=== PATIENT | female | born 1970 | race Caucasian/White ===

== ENCOUNTER 2017-08-29 11:01 | Emergency (ER) | payer BC ==
[~2017-08-29] VITALS: Ht 165.1 cm; Wt 108.9 kg
[2017-08-29] MEDS ORDERED: XANAX 0.5 MG0.5 MG PO (11:22)
[2017-08-29] MEDS ORDERED: PROZAC10 M1 PO (11:22)
[2017-08-29] MEDS ORDERED: REXULTI0.25 MG PO (11:22)
[2017-08-29 11:32] LABS: ABSOLUTE EOSINOPHILS 0.1 thou/uL (0.0-0.7); ABSOLUTE LYMPHOCYTES 1.9 thou/uL (0.8-5.3); ABSOLUTE MONOCYTES 0.6 thou/uL (0.0-1.2); ABSOLUTE NEUTROPHILS 4.6 thou/uL (1.6-8.1); BASOPHILS 0.5 %; EOSINOPHILS 1.6 %; HEMATOCRIT 44.7 % (37.0-47.0); HEMOGLOBIN 15.1 gm/dL (12.0-15.0); LYMPHOCYTES 26.4 %; MCH 30.3 pg (26.0-34.0); MCHC 33.7 g/dL (28.0-37.0); MCV 89.7 fL (80.0-100.0); MONOCYTES 8.7 %; NUCLEATED RBCS 0 /100WBC; PLATELET COUNT* 265 thou/uL (150-400); POLYS 62.8 %; RBC 4.98 mil/uL (4.20-5.00); RDW-CV 12.9 % (10.5-14.5); WBC 7.3 thou/uL (4.0-11.0)
[2017-08-29 11:57] LABS: ANION GAP 9 mmol/L (7-16); BUN 15 mg/dL (7-18); CALCIUM 9.2 mg/dL (8.5-10.1); CHLORIDE 104 mmol/L (98-107); CO2 27 mmol/L (21-32); CREATININE 0.8 mg/dL (0.6-1.3); GLUCOSE 92 mg/dL (70-99); SODIUM 140 mmol/L (136-145)
[2017-08-29 12:05] LABS: ALBUMIN 3.7 g/dL (3.4-5.0); ALKALINE PHOSPHATASE 72 U/L (46-116); SGOT 13 U/L (15-37); SGPT 20 U/L (30-65); TOTAL BILIRUBIN 0.7 mg/dL (<0.1-1.0); TOTAL PROTEIN 7.5 g/dL (6.4-8.2); TROPONIN-I LEVEL <0.06 ng/mL (<0.06)
[2017-08-29 12:08] LABS: URINE BLOOD TRACE (Negative); URINE CLARITY CLEAR; URINE COLOR YELLOW; URINE GLUCOSE-RANDOM NEGATIVE (Negative); URINE KETONES 2+ (Negative); URINE LEUKOCYTES-REFLEX NEGATIVE (Negative); URINE NITRITE-REFLEX NEGATIVE (Negative); URINE PROTEIN NEGATIVE (Negative); URINE SPECIFIC GRAVITY >= 1.030 (1.005-1.030); URINE UROBILINOGEN 0.2 E.U./dl (0.2-1.0)
[2017-08-29 12:11] LABS: URINE BILIRUBIN 1+ (Negative)
[2017-08-29 12:12] LABS: ICTOTEST (BILI CONFIRMATORY) Negative (Negative)
[2017-08-29 12:16] LABS: BACTERIA-REFLEX 1-9 Few /HPF (None Seen); CASTS None Seen /LPF (None Seen); CRYSTALS None Seen /LPF (None Seen); MUCUS >6 Heavy strn/LPF (None Seen); SQUAMOUS 4-10 Moderate /LPF (0-3); URINE RBC 0-2 Rare /HPF (0-2); URINE WBC-REFLEX 0-5 Rare /HPF (0-5)
[2017-08-29 12:54] LABS: ACETAMINOPHEN < 10 ug/mL (10-30); ALCOHOL < 2 mg/dL (<10); SALICYLATE < 2.8 mg/dL (2.8-20.0)
[2017-08-29 12:54] LABS: AMP/METHAMP Negative (Negative); BARBITURATES Negative (Negative); BENZODIAZEPINES POSITIVE (Negative); COCAINE Negative (Negative); METHADONE Negative (Negative); OPIATES Negative (Negative); PCP Negative (Negative); THC Negative (Negative)
[2017-08-29 13:00] VITALS: BP 119/78
--- NOTE | 2017-08-29 15:27 | EKG ---
[place] [address] ELECTROCARDIOGRAM REPORT Name: PJ BOUCHER Room: [facility]#: [id number] Admission: 08/29/17 Attend Phys: Discharge: 08/29/17 Date of : 68 Report #: [id number] THIS REPORT FOR: //name// [facility] ED Test Date: 2017-08-29 Test Time: 11:38:48 Pat Name: PJ BOUCHER Department: Room: Gender: F Electrical Electronics Engineer: JOSE MARTIN : 1970 Requested By: Anita Ch Order Number: [id number] MD: Jon Condon Measurements Intervals Lane Rate: 72 P: 18 TN: 116 QRS: 40 QRSD: 89 T: 40 QT: 392 QTc: 430 Interpretive Statements Sinus rhythm Borderline short TN interval Compared to ECG 04/12/2006 21:10:51 No significant changes Electronically Signed On 08-29-2017 15:27:03 CDT by Jon Condon [email or web address] <ELECTRONICALLY SIGNED> By: Jon Condon MD, [facility] 08/29/17 1527 [id number] Jon [email or web address] MD, [facility] /EPI
== END 2017-08-29 13:01 | disposition home or self-care (01) ==
LOC: M.ERS 11:01
PROVIDERS: Nurse Practitioner Family
DX: F43.0 Acute stress reaction (principal); Z88.5 Allergy status to narcotic agent; F32.9 Major depressive disorder, single episode, unspecified

== ENCOUNTER 2018-12-11 10:40 | Inpatient (IN) | payer BC ==
[~2018-12-11] VITALS: Ht 165.1 cm; Wt 108.0 kg
[~2018-12-11 10:40] MED LIST: PROZAC10 M1 PO; REXULTI0.25 MG PO; XANAX 0.5 MG0.5 MG PO
[2018-12-11 10:48] VITALS: BP 153/98
[2018-12-11 11:33] LABS: ABSOLUTE EOSINOPHILS 0.2 thou/uL (0.0-0.7); ABSOLUTE LYMPHOCYTES 1.7 thou/uL (0.8-5.3); ABSOLUTE MONOCYTES 0.7 thou/uL (0.0-1.2); ABSOLUTE NEUTROPHILS 5.4 thou/uL (1.6-8.1); BASOPHILS 0.4 %; EOSINOPHILS 2.8 %; HEMATOCRIT 41.6 % (37.0-47.0); HEMOGLOBIN 14.2 gm/dL (12.0-15.0); LYMPHOCYTES 20.8 %; MCH 30.5 pg (26.0-34.0); MCHC 34.1 g/dL (28.0-37.0); MCV 89.3 fL (80.0-100.0); MONOCYTES 9.2 %; NUCLEATED RBCS 0 /100WBC; PLATELET COUNT* 228 thou/uL (150-400); POLYS 66.8 %; RBC 4.66 mil/uL (4.20-5.00); RDW-CV 13.1 % (10.5-14.5)
[2018-12-11 11:41] LABS: CALCIUM 8.6 mg/dL (8.5-10.1); CREATININE 0.9 mg/dL (0.6-1.3); POTASSIUM 3.9 mmol/L (3.5-5.1)
[2018-12-11 11:45] LABS: ALBUMIN 3.2 g/dL (3.4-5.0); TOTAL BILIRUBIN 0.5 mg/dL (<0.1-1.0)
[2018-12-11 12:35] LABS: ESR (SEDRATE) 13 mm/hr (0-20)
[2018-12-11 13:05] VITALS: BP 153/73
[2018-12-11 13:10] VITALS: BP 133/68
[2018-12-11 19:53] VITALS: BP 122/60
[2018-12-12 05:19] LABS: HEMATOCRIT 38.7 % (37.0-47.0); HEMOGLOBIN 13.1 gm/dL (12.0-15.0); MCH 30.7 pg (26.0-34.0); MCHC 33.8 g/dL (28.0-37.0); MCV 90.9 fL (80.0-100.0); MPV 9.1 fl. (7.2-11.1); RBC 4.26 mil/uL (4.20-5.00); RDW-CV 13.1 % (10.5-14.5); WBC 6.6 thou/uL (4.0-11.0)
[2018-12-12 05:52] LABS: CALCIUM 8.8 mg/dL (8.5-10.1)
[2018-12-12 05:57] LABS: POTASSIUM 4.9 mmol/L (3.5-5.1)
[2018-12-12 07:51] VITALS: BP 119/81
[2018-12-12 16:00] VITALS: BP 110/59
[2018-12-12 19:50] VITALS: BP 110/67
[2018-12-13 07:15] LABS: ABSOLUTE EOSINOPHILS 0.2 thou/uL (0.0-0.7); ABSOLUTE LYMPHOCYTES 1.4 thou/uL (0.8-5.3); ABSOLUTE MONOCYTES 0.4 thou/uL (0.0-1.2); ABSOLUTE NEUTROPHILS 2.8 thou/uL (1.6-8.1); BASOPHILS 0.7 %; EOSINOPHILS 4.1 %; HEMATOCRIT 37.1 % (37.0-47.0); HEMOGLOBIN 12.6 gm/dL (12.0-15.0); LYMPHOCYTES 28.9 %; MCV 91.1 fL (80.0-100.0); MONOCYTES 8.6 %; NUCLEATED RBCS 0 /100WBC; PLATELET COUNT* 201 thou/uL (150-400); POLYS 57.7 %; RBC 4.07 mil/uL (4.20-5.00); RDW-CV 13.5 % (10.5-14.5); WBC 4.8 thou/uL (4.0-11.0)
[2018-12-13 08:30] VITALS: BP 97/62
[2018-12-13] MEDS ORDERED: KEFLEX500 M1 PO (13:13)
[2018-12-13 13:41] VITALS: BP 97/62
== END 2018-12-13 14:22 | disposition home or self-care (01) | DRG 558 ==
LOC: M.ERS 10:40 → M.TBA-ER 12:01 → M.3W 12:01
PROVIDERS: Orthopaedic Surgery; Physician Assistant; ADMIT Internal Medicine
DX: M70.22 Olecranon bursitis, left elbow (principal); M00.9 Pyogenic arthritis, unspecified; E44.1 Mild protein-calorie malnutrition; E66.9 Obesity, unspecified; F32.9 Major depressive disorder, single episode, unspecified; Z88.6 Allergy status to analgesic agent; F41.1 Generalized anxiety disorder; Z68.39 Body mass index [BMI] 39.0-39.9, adult; X58.XXXA Exposure to other specified factors, initial encounter; Y93.89 Activity, other specified; Y92.89 Other specified places as the place of occurrence of the external cause; Y99.8 Other external cause status

== ENCOUNTER 2019-01-16 15:00 | Emergency (ER) | payer BC ==
[~2019-01-16] VITALS: Ht 165.1 cm; Wt 122.0 kg
[~2019-01-16 15:00] MED LIST changes: +KEFLEX500 M1 PO
[2019-01-16 16:14] VITALS: BP 156/85
== END 2019-01-16 16:14 | disposition home or self-care (01) ==
LOC: M.ERS 15:00
DX: R41.0 Disorientation, unspecified (principal); F32.9 Major depressive disorder, single episode, unspecified; K21.9 Gastro-esophageal reflux disease without esophagitis; Z90.49 Acquired absence of other specified parts of digestive tract; Z88.5 Allergy status to narcotic agent

== ENCOUNTER 2019-10-22 11:37 | Emergency (ER) | payer BC ==
[~2019-10-22] VITALS: Ht 167.6 cm; Wt 115.7 kg
[2019-10-22] MEDS ORDERED: VENTOLIN HFA 1818 GM INH ×2 (12:16→12:17)
[2019-10-22] MEDS ORDERED: ZPAK PO ×2 (12:16→12:17)
[2019-10-22] MEDS ORDERED: ONDANSETRON HCL4 M2 PO ×2 (12:16→12:17)
[2019-10-22] MEDS ORDERED: NORCO 5-325 TA1 EAC2 PO (14:21)
[2019-10-22 14:35] VITALS: BP 136/76
== END 2019-10-22 14:36 | disposition home or self-care (01) ==
LOC: M.ERS 11:37
DX: M54.41 Lumbago with sciatica, right side (principal); K21.9 Gastro-esophageal reflux disease without esophagitis; F32.9 Major depressive disorder, single episode, unspecified; Z90.49 Acquired absence of other specified parts of digestive tract; Z88.6 Allergy status to analgesic agent